=== PATIENT | male | born 1980 | race Caucasian/White ===

== ENCOUNTER 2022-08-09 04:11 | Day surgery (SDC) | payer OTHER ==
[2022-08-05 12:27] VITALS: BMI 24.3
[2022-08-09] MEDS ORDERED: LIDOCAINE HCL/PF 2% SDV 5ML VIAL ONE (07:13)
[2022-08-09] MEDS ORDERED: MIDAZOLAM HCL 2 MG/2 ML SINGLE DOSE VIAL ONE (07:14)
[2022-08-09] MEDS ORDERED: PROPOFOL 20 ML ONE (07:14)
[2022-08-09] MEDS ORDERED: BUPIVACAINE HCL/PF 0.5% (5MG/ML) 10 ML VIAL ONE (07:52)
[2022-08-09] MEDS ORDERED: DEXAMETHASONE SOD PHOSPHATE 4 MG/1 ML VIAL ONE (08:19)
[2022-08-09] MEDS ORDERED: CLINDAMYCIN 600MG PREMIX IVPB 600 MG/50 ML BAG IVPB ONE (08:20)
[2022-08-09] MEDS ORDERED: CLINDAMYCIN PHOSPHATE 600 MG/4 ML VIAL IVPB ONE (08:20)
[2022-08-09] MEDS ORDERED: ONDANSETRON 4 MG/2 ML VIAL ONE (08:31)
[2022-08-09] MEDS ORDERED: KETOROLAC TROMETHAMINE 30 MG/1 ML VIAL ONE (08:31)
[2022-08-09] MEDS ORDERED: ONDANSETRON 4 MG/2 ML VIAL IVPUSH PRN (09:09)
[2022-08-09] MEDS ORDERED: oxyCODONE HCL 5 MG TABLET PO PRN (09:09)
[2022-08-09] MEDS ORDERED: LACTATED RINGERS SOLUTION 1,000 ML IV SCH (09:15)
[2022-08-09 10:06] VITALS: RESP 20
[2022-08-09 12:48] VITALS: BP 112/59; PULSE 56; TEMP 98.2
== END 2022-08-09 12:10 | disposition home or self-care (01) ==
LOC: JASU-SURG 04:11
PROVIDERS: ATTEND Orthopaedic Surgery
PROC: 0SBC4ZZ Excision of Right Knee Joint, Percutaneous Endoscopic Approach (ICD-10-PCS; principal; 2022-08-09 08:00)
DX: S83.241A Other tear of medial meniscus, current injury, right knee, initial encounter (principal); X58.XXXA Exposure to other specified factors, initial encounter; Y93.9 Activity, unspecified; Y92.9 Unspecified place or not applicable
CPT/HCPCS: 94760